=== PATIENT | male | born 2000 | race Caucasian/White ===

== ENCOUNTER 2023-09-16 21:44 | Emergency (ER) | payer BC, SELFPAY ==
[2023-09-16 21:48] VITALS: BP 117/78; PULSE 77; RESP 18; TEMP 36.6; O2SAT 100; BMI 26.6
--- NOTE | 2023-09-16 22:00 | XR_ITS ---
The [address] [address] Patient Name: ARISTIDES ZHENG MRN: [id number] date: 2000 Sex: M Assigned Patient Location: ER Current Patient Location: ER Accession/Order Number: [id number] Exam Date: 09/16/2023 22:12 Report Date: 09/16/2023 22:33 At the request of: MICAH BENJAMIN Procedure: XR ankle LT min 3V EXAM: XR foot LT min 3V, XR ankle LT min 3V HISTORY: The patient is a 23-year-old male, basketball injury COMPARISON: None. FINDINGS: The left foot is radiographically negative with no evidence of fracture, dislocation, cortical discontinuities, or other osseous or articular abnormalities. No acute or ununited fractures are seen within or around the ankle joint. The ankle mortise is intact and uniform. The syndesmosis is maintained. No soft tissue swelling is seen. XR/XR ankle LT min 3V IMPRESSION: Radiographically negative left foot and left ankle. Electronically authenticated by: MAGGY SHAY Date: 09/16/2023 22:33
--- NOTE | 2023-09-16 22:00 | XR_ITS ---
The [address] [address] Patient Name: ARISTIDES ZHENG MRN: [id number] date: 2000 Sex: M Assigned Patient Location: ER Current Patient Location: ER Accession/Order Number: [id number] Exam Date: 09/16/2023 22:12 Report Date: 09/16/2023 22:33 At the request of: MICAH BENJAMIN Procedure: XR foot LT min 3V EXAM: XR foot LT min 3V, XR ankle LT min 3V HISTORY: The patient is a 23-year-old male, basketball injury COMPARISON: None. FINDINGS: The left foot is radiographically negative with no evidence of fracture, dislocation, cortical discontinuities, or other osseous or articular abnormalities. No acute or ununited fractures are seen within or around the ankle joint. The ankle mortise is intact and uniform. The syndesmosis is maintained. No soft tissue swelling is seen. XR/XR foot LT min 3V IMPRESSION: Radiographically negative left foot and left ankle. Electronically authenticated by: MAGGY SHAY Date: 09/16/2023 22:33
--- NOTE | 2023-09-16 22:49 | ED.LOWEXI1 ---
HPI - Extremity Injury (Lower) General Chief Complaint: Extremity Injury, Lower Stated Complaint: lower extremity pain Time Seen by Provider: 09/16/23 21:53 Source: patient Mode of arrival: walk-in Limitations: no limitations History of Present Illness HPI Narrative: The patient was playing basketball at a local rec center when he landed awkwardly onto the left lower extremity, twisting the left ankle and developing pain in the left foot medially and left ankle medially and laterally. He says that the area is now bruised and swollen. He believes injury occurred around 5 PM tonight and he took some ibuprofen a couple of hours later. He did not fall to the ground. No head injury or neck injury. No headache or neck pain. No back pain. No other extremity injuries. Related Data Home Medications Medication Instructions Recorded Confirmed No Known Home Medications 09/16/23 09/16/23 Allergies Allergy/AdvReac Type Severity Reaction Status Date / Time No Known Drug Allergies Allergy Verified 09/16/23 21:48 PFSH PFSH Social History Smoking status: Current every day smoker Exam Narrative Exam Narrative: Nurses note and vital signs reviewed and patient is not hypoxic. Afebrile General: The patient appears well and in no apparent distress. Patient is resting comfortably on cart. GCS = 15. Skin: Warm, dry, no pallor noted. Cardiovascular: Normal peripheral perfusion Respiratory: Patient is in no distress, no accessory muscle use Musculoskeletal: Tenderness with swelling noted to the lateral aspect of the left ankle. He has some tenderness along the left fifth metatarsal as well. He is also tender on the medial aspect of the left ankle but there is no associated swelling. I do not appreciate any ecchymosis. He has normal range of motion of the toes of the left foot as well as at the left ankle. No proximal fibular or tibial tenderness. no additional sign of long bone fracture, no tenderness, no swelling. 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 Psychiatric: Cooperative Constitutional Vital Signs, click to edit/add: Last Vital Signs Temp 97.9 F 09/16/23 21:48 Pulse 77 09/16/23 21:48 Resp 18 09/16/23 21:48 BP 117/78 09/16/23 21:48 Pulse Ox 100 09/16/23 21:48 O2 Del Method Room Air 09/16/23 21:48 Course Vital Signs Vital signs: Vital Signs Temperature 97.9 F 09/16/23 21:48 Pulse Rate 77 09/16/23 21:48 Respiratory Rate 18 09/16/23 21:48 Blood Pressure 117/78 09/16/23 21:48 Pulse Oximetry 100 09/16/23 21:48 Oxygen Delivery Method Room Air 09/16/23 21:48 Temperature 97.9 F 09/16/23 21:48 Pulse Rate 77 09/16/23 21:48 Respiratory Rate 18 09/16/23 21:48 Blood Pressure 117/78 09/16/23 21:48 Pulse Oximetry 100 09/16/23 21:48 Oxygen Delivery Method Room Air 09/16/23 21:48 MDM - Extremity Injury (Lower) MDM Narrative Medical decision making narrative: The patient took ibuprofen a couple of hours prior to arrival. No fractures identified on x-rays of the left foot and ankle, per radiologist. An Phillip wrap was applied to the patient's left ankle by the emergency department nurse and an Aircast was applied as well. Patient was neurovascularly intact distally afterward. He was discharged home with information on foot and ankle sprain, recommendation to elevate the extremity, apply ice, wear compressive bandage and take [id number] Tylenol Motrin as needed for pain. Imaging Data xr foot & xr ankle: Attestation: I have reviewed the pertinent imaging results. Radiologist's impression: ITS Impressions Ankle X-Ray 09/16/23 22:00 IMPRESSION: Radiographically negative left foot and left ankle. Electronically authenticated by: MAGGY SHAY Date: 09/16/2023 22:33 Foot X-Ray 09/16/23 22:00 IMPRESSION: Radiographically negative left foot and left ankle. Electronically authenticated by: MAGGY SHAY Date: 09/16/2023 22:33 Discharge Plan Discharge Chief Complaint: Extremity Injury, Lower Clinical Impression: Ankle sprain and strain, Foot sprain Patient Disposition: Home, Self-Care Time of Disposition Decision: 22:50 Prescriptions / Home Meds: No Action No Known Home Medications Instructions: Ankle Sprain (ED), Foot Sprain (ED) Stand Alone Forms: Portal Instructions Referrals: Yesenia Soria NP [Primary Care Provider] - 1 week
== END 2023-09-16 23:15 | disposition home or self-care (01) ==
PROVIDERS: Emergency Provider Emergency Medicine; PCP Nurse Practitioner
DX: S93.402A Sprain of unspecified ligament of left ankle, initial encounter (principal); S96.912A Strain of unspecified muscle and tendon at ankle and foot level, left foot, initial encounter; S93.602A Unspecified sprain of left foot, initial encounter; X50.1XXA Overexertion from prolonged static or awkward postures, initial encounter; Y93.67 Activity, basketball; F17.210 Nicotine dependence, cigarettes, uncomplicated
CPT/HCPCS: 73610; 73630; 99283

== ENCOUNTER 2023-09-17 05:54 | Emergency (ER) | payer BC, SELFPAY ==
[2023-09-17 05:55] VITALS: BP 124/89; PULSE 69; RESP 13; TEMP 36.6; O2SAT 100; BMI 26.6
--- NOTE | 2023-09-17 05:56 | ECG_ITS ---
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
[2023-09-17 05:57] VITALS: PULSE 65; RESP 33
[2023-09-17 06:00] VITALS: PULSE 80; RESP 19
[2023-09-17 06:01] VITALS: BP 123/82; PULSE 58; RESP 17; O2SAT 100
[2023-09-17 06:02] VITALS: PULSE 64
[2023-09-17] MEDS: 0.9 % SODIUM CHLORIDE 1,000 ML 999 ML IV (06:03)
--- OUTSIDE RECORDS SUMMARY | 2023-09-17 06:03 | XMS_ITS | CCD ---
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 Track Name Role Phone Unavailable Primary Care Provider Greg LUX, DR JP Ohara Attending Unavailsherley JHAVERI, MIKE GUERRERO Primary Care Unavailable JOSE J, DR JP Ohara Admitting Unavailsherley LUX, DR JP Ohara Consulting Unavailabl e AICHHOLZ, MIKE GUERRERO Admitting Unavailable MIKE JHAVERIA Primary Care Unavailable EMILIO, MIKE GUERRERO Consulting Unavailable MIKE JHAVERI Attending Unavailable Wally ROACH Attending Unavailable Medications Completed/Discontinued Medications Medication Drug Class(es) Dates Sig (Normalized) Sig (Original) acetaminophen 325 mg / HYDROcodone bitartrate 5 mg oral tablet (2 sources) Opioid Agonist Start: 01-16-2021 End: 01-16-2021 HYDROcodone-acetam inophen (NORCO) 5-325 MG per tablet 2 tablet Start: 01-16-2021 End: 01-19-2021 take 1-2 tablets by mouth every eight hours as needed for pain HYDROcodone-acetaminophen (NORCO) 5-325 MG per tablet Indications: Pilonidal cyst Take 1-2 tablets by mouth every 8 hours as needed for Pain for up to 3 days. 9 tablet 0 01/16/2021 01/19/2021 Active Problems Active Problems Problem Classification Problem Date Documented Da te Episodic/Chronic Abdominal pain (4 sources) Upper abdominal pain, unspecified; Translations: [UPPER ABDOMINAL PAIN, UNSPECIFIED] Onset: 04-04-2022 Episodic Skin and subcutaneous tissue infections (1 source) Pilonidal cyst; Translations: [Pilonidal cyst without abscess] Episodic Unclassified (3 sources) CONTACT W/AND (SUSP) EXPOS COVID-19; Translations: [CONTACT W/AND (SUSP) EXPOS COVID-19] Onset: 08-09-2021 Past or Other Problems Problem Classification Problem Date Documented Da te Episodic/Chronic Unclassified (1 source) CONTACT W/AND (SUSP) EXPOS COVID-19; Translations: [CONTACT W/AND (SUSP) EXPOS COVID-19] Onset: 08-02-2021 Results Test Name Value Interpretation Reference Range Facil ity Registrationon 01-10-2023 Registration [id number] 9#1.00CD:127 Normal [facility] Consenton 01-09-2023 Consent [id number] 5#[id number]:127 Normal [facility] OCC BLD IMMUNO SCREENon OCCULT BLOOD Positive Abnormal NEGATIVE [facility] Comment on above: Performed By: #### O BSCRN #### [facility] [address] [place] [address] Dr. Praveen Horvath CBC AUTO DIFFon 04-04-2022 BASO # 0.0 103/ul Normal 0.0-0.1 [facility] Comment on above: Performed By: #### C BC #### [facility] [address] [place] [address] Dr. Praveen Horvath Basophils/100 WBC (Bld) 0.4 % Normal 0.2-2.0 [facility] Comment on above: Performed By: #### C BC #### [facility] [address] [place] [address] Dr. Praveen Horvath EO # 0.2 103/ul Normal 0.0-0.7 [facility] Comment on above: Performed By: #### C BC #### [facility] [address] [place] [address] Dr. Praveen Horvath Eosinophils/100 WBC (Bld) 2.7 % Normal 0.9-7.0 [facility] Comment on above: Performed By: #### C BC #### [facility] [address] [place] [address] Dr. Praveen Horvath Erythrocyte distribution width (RBC) [Ratio] 12.4 % Normal 11.0-15.0 [facility] Comment on above: Performed By: #### C BC #### [facility] [address] [place] [address] Dr. Praveen Horvath Hematocrit (Bld) [Volume fraction] 39.3 % Critically low 42.0-54.0 [facility] Comment on above: Performed By: #### C BC #### [facility] [address] [place] [address] Dr. Praveen Horvath Hemoglobin (Bld) [Mass/Vol] 13.2 g/dL Critically low 14.0-18.0 [facility] Comment on above: Performed By: #### C BC #### [facility] [address] [place] [address] Dr. Praveen Horvath IG # 0.01 10e3/ul Normal 0.00-0.03 [facility] Comment on above: Performed By: #### C BC #### [facility] [address] [place] [address] Dr. Praveen Horvath IG % 0.1 % Normal 0.0-0.5 [facility] Comment on above: Performed By: #### C BC #### [facility] [address] [place] [address] Dr. Praveen Horvath LYMPH # 2.3 103/ul Normal 1.2-3.8 [facility] Comment on above: Performed By: #### C BC #### [facility] [address] [place] [address] Dr. Praveen Horvath Lymphocytes/100 WBC (Bld) 32.9 % Normal 20.5-60.0 [facility] Comment on above: Performed By: #### C BC #### [facility] [address] [place] [address] Dr. Praveen Horvath MANUAL DIFF REQ NO Normal [facility] Comment on above: Performed By: #### C BC #### [facility] [address] [place] [address] Dr. Praveen Horvath MCH (RBC) [Entitic mass] 30.6 pg Normal 25.9-34.0 [facility] Comment on above: Performed By: #### C BC #### [facility] [address] [address] [address] Praveen Horvath MCHC (RBC) [Mass/Vol] 33.6 g/dL Normal 29.9-35.2 [facility] Comment on above: Performed By: #### C BC #### [facility] [address] [address] [address] Praveen Horvath MCV (RBC) [Entitic vol] 91.2 fL Normal 80.0-94.0 [facility] Comment on above: Performed By: #### C BC #### [facility] [address] [place] [address] Dr. Praveen Horvath MONO # 0.5 103/ul Normal 0.3-0.8 [facility] Comment on above: Performed By: #### C BC #### [facility] [address] [place] [address] Dr. Praveen Horvath Monocytes/100 WBC (Bld) 7.4 % Normal 1.7-12.0 [facility] Comment on above: Performed By: #### C BC #### [facility] [address] [place] [address] Dr. Praveen Horvath NEUT # 3.9 103/ul Normal 1.4-6.5 [facility] Comment on above: Performed By: #### C BC #### [facility] [address] [place] [address] Dr. Praveen Horvath Neutrophils/100 WBC (Bld) 56.5 % Normal 43.0-75.0 [facility] Comment on above: Performed By: #### C BC #### [facility] [address] [place] [address] Dr. Praveen Horvath Platelet mean volume (Bld) [Entitic vol] 9.3 fL Critically low 9.5-13.5 [facility] Comment on above: Performed By: #### C BC #### [facility] [address] [place] [address] Dr. Praveen Horvath PLT 175 103/ul Normal 150-450 [facility] Comment on above: Performed By: #### C BC #### [facility] [address] [place] [address] Dr. Praveen Horvath RBC 4.31 106/ul Critically low 4.70-6.10 [facility] Comment on above: Performed By: #### C BC #### [facility] [address] [place] [address] Dr. Praveen Horvath WBC 6.9 103/ul Normal 4.0-11.0 [facility] Comment on above: Performed By: #### C BC #### [facility] [address] [place] [address] Dr. Praveen Horvath LIPASEon 04-04-2022 Lipase [Catalytic activity/Vol] 131.0 U/L Normal 73.0-393.0 [facility] Comment on above: Performed By: #### L IPA, CMP #### [facility] [address] [place] [address] Dr. Praveen Horvath PROF 14(COMP METB)on 022 Albumin [Mass/Vol] 4.2 g/dL Normal 3.4-5.0 [facility] Comment on above: Performed By: #### L IPA, CMP #### [facility] [address] [place] [address] Dr. Praveen Horvath Albumin/Globulin [Mass ratio] 2.0 {ratio} Normal [facility] Comment on above: Performed By: #### L IPA, CMP #### [facility] [address] [place] [address] Dr. Praveen Horvath ALP [Catalytic activity/Vol] 68 U/L Normal 46-116 [facility] Comment on above: Performed By: #### L IPA, CMP #### [facility] [address] [place] [address] Dr. Praveen Horvath ALT [Catalytic activity/Vol] 29 U/L Normal 16-63 [facility] Comment on above: Performed By: #### L IPA, CMP #### [facility] [address] [place] [address] Dr. Praveen Horvath Anion gap [Moles/Vol] 8.4 mmol/L Normal [facility] Comment on above: Performed By: #### L IPA, CMP #### [facility] [address] [address] [address] Praveen Horvath AST [Catalytic activity/Vol] 14 U/L Critically low 15-37 [facility] Comment on above: Performed By: #### L IPA, CMP #### [facility] [address] [address] [address] Praveen Horvath Bilirubin [Mass/Vol] 0.3 mg/dL Normal 0.2-1.0 [facility] Comment on above: Performed By: #### L IPA, CMP #### [facility] [address] [address] [address] Praveen Horvath Calcium [Mass/Vol] 8.7 mg/dL Normal 8.5-10.1 [facility] Comment on above: Performed By: #### L IPA, CMP #### [facility] [address] [address] [address] Praveen Horvath Chloride [Moles/Vol] 105 mmol/L Normal 98-107 [facility] Comment on above: Performed By: #### L IPA, CMP #### [facility] [address] [address] [address] Praveen Horvath CO2 [Moles/Vol] 27.3 mmol/L Normal 21.0-32.0 [facility] Comment on above: Performed By: #### L IPA, CMP #### [facility] [address] [address] [address] Praveen Horvath Creatinine [Mass/Vol] 0.86 mg/dL Normal 0.70-1.30 [facility] Comment on above: Performed By: #### L IPA, CMP #### [facility] [address] [address] [address] Praveen Horvath EGFR-AF PORTUGUESE >60 Normal >=60 [facility] Comment on above: Performed By: #### L IPA, CMP #### [facility] [address] [address] [address] Praveen Horvath EGFR-NON AF [place]UESE >60 Normal >=60 [facility] Comment on above: Performed By: #### L IPA, CMP #### [facility] [address] [address] [address] Praveen Horvath Globulin (S) [Mass/Vol] 2.1 g/dL Normal [facility] Comment on above: Performed By: #### L IPA, CMP #### [facility] [address] [address] [address] Praveen Horvath Glucose [Mass/Vol] 88 mg/dL Normal 74-106 [facility] Comment on above: Performed By: #### L IPA, CMP #### [facility] [address] [address] [address] Praveen Horvath Potassium [Moles/Vol] 3.7 mmol/L Normal 3.5-5.1 [facility] Comment on above: Performed By: #### L IPA, CMP #### [facility] [address] [place] [address] Dr. Praveen Horvath Protein [Mass/Vol] 6.3 g/dL Critically low 6.4-8.2 [facility] Comment on above: Performed By: #### L IPA, CMP #### [facility] [address] [place] [address] Dr. Praveen Horvath Sodium [Moles/Vol] 137 mmol/L Normal 136-145 [facility] Comment on above: Performed By: #### L IPA, CMP #### [facility] [address] [place] [address] Dr. Praveen Horvath Urea nitrogen [Mass/Vol] 15.0 mg/dL Normal 7.0-18.0 [facility] Comment on above: Performed By: #### L IPA, CMP #### [facility] [address] [place] [address] Dr. Praveen Horvath Urea nitrogen/Creatinine [Mass ratio] 17.4 mg/mg Normal [facility] Comment on above: Performed By: #### L IPA, CMP #### [facility] [address] [place] [address] Dr. Praveen Horvath Cov[facility]-19 [facility]on SARS-CoV-2 (COVID-19) RNA LO+probe Ql (Unsp spec) Not detected Normal NOT DETECTED [facility] Comment on above: Result Comment: This test is not yet approved or cleared by the [place] FDA. When there are no FDA-approved or cleared tests available, and other criteria are met, FDA can make tests available under an emergency access mechanism called an Emergency Use Authorization (EUA). The EUA for this test is supported by the [employer] Aligner of Health and Human Service's (HHS's) declaration that circumstances exist to justify the emergency use of in vitro diagnostics for the detection and/or diagnosis of the virus that causes COVID-19. This EUA will remain in effect (meaning this test can be used) for the duration of the COVID-19 declaration justifying emergency of IVDs, unless it is terminated or revoked by FDA (after which the test may no longer be used). When diagnostic testing is negative, the possibility of a false negative should be considered in the context of a patient's recent exposures and the presence of clinical signs and symptoms consistent with SARS-CoV-2. Performed By: #### [facility] #### [facility] [address] [place] [address] Dr. Praveen Horvath Incision/DrainageOrdered By: Jaswinder Mckenzie on 01-16-2021 Jaswinder Mckenzie DO 01/16/2021 10:19 PM Incision/Drainage Date/Time: 01/16/2021 10:13 PM Performed by: Jaswinder Mckenzie DO Authorized by: Jaswinder Mckenzie DO Consent: Consent obtained: Verbal Consent given by: Patient Risks discussed: Bleeding, damage to other organs, infection, incomplete drainage and pain Alternatives discussed: Referral, observation, alternative treatment, delayed treatment and no treatment Reading protocol: Procedure explained and questions answered to patient or proxy's satisfaction: yes Relevant documents present and verified: yes Test results available and properly labeled: yes Imaging studies available: yes Required blood products, implants, devices, and special equipment available: yes Site/side marked: yes Immediately prior to procedure a time out was called: yes Patient identity confirmed: Verbally with patient Location: Type: Cyst Size: 1.5 cm Location: pilonidal cyst. Pre-procedure details: Skin preparation: Betadine Anesthesia (see MAR for exact dosages): Anesthesia method: Local infiltration Local anesthetic: Bupivacaine 0.5% w/o epi Procedure type: Complexity: Simple Procedure details: Needle aspiration: no Incision types: Elliptical Scalpel blade: 10 Wound management: Probed and deloculated, irrigated with saline and extensive cleaning Drainage: Purulent Drainage amount: Moderate Wound treatment: Wound left open Packing materials: None Post-procedure details: Patient tolerance of procedure: Tolerated well, no immediate complications [employer] Phone: [employer] Phone: Vital Signs Date Time Vital Sign Value Performing Clinician Faci lity 01-16-2021 21:42-0400 Body height 175.3 cm Jaswinder Kauli Phone: [employer] Phone: 01-16-2021 21:42-0400 Body mass index (BMI) [Ratio] 35.44 kg/m2 Jaswinder [employer] Work Phone: [employer] Phone: 01-16-2021 21:42-0400 Body temperature 98.01 [degF] Jaswinderkrys Mckenzie [employer] Work Phone: [employer] Phone: 01-16-2021 21:42-0400 Body weight 108.86 kg Jaswinder Mckenzie [employer] Work Phone: [employer] Phone: 01-16-2021 21:42-0400 Diastolic blood pressure 79 mm[Hg] Jaswinder Mckenzie [employer] Work Phone: [employer] Phone: 01-16-2021 21:42-0400 Heart rate 91 /min Jaswinder [employer] Work Phone: [employer] Phone: 01-16-2021 21:42-0400 Respiratory rate 16 /min Jaswinderkrys Mckenzie [employer] Work Phone: [employer] Phone: 01-16-2021 21:42-0400 SaO2% (BldA) [Mass fraction] 98 % Jaswinder Mckenzie [employer] Phone: [employer] Phone: 01-16-2021 21:42-0400 Systolic blood pressure 125 mm[Hg] Jaswinder Mckenzie DO [employer] Phone: [employer] Phone: Encounters Encounter Date Encounter Type Care Provider Facility Start: 01-09-2023 End: 01-10-2023 ambulatory Wally ROACH Facility:[facility] Start: 04-04-2022 End: 04-04-[address] JP LUX Facility:[facility] Start: 08-02-2021 End: 08-02-2021 ambulatory MIKE JHAVERI Facility:[facility] Start: 01-16-2021 End: 01-16-2021 Emergency department patient visit Jaswinder Mckenzie [employer] Phone: [facility] Comment on above: Pilonidal cyst (Prim nerissa Dx) Procedures Date Procedure Procedure Detail Performing Clinician Start: 01-16-2021 INCISION AND DRAINAGE P joseck Dimas Mckenzie [employer] Phone: Plan of Treatment Date Care Activity Detail Author Start: 03-28-2021 Influenza vaccination Flu vacc ine (Season Ended) [employer] Phone: Start: 2011 COVID-19 Vaccine (1) COVID-19 Vaccin e (1) [employer] Phone: Payers Date Payer Category Payer Unknown [id number] 1999 Unknown [id number] 1960 Self-pay 1960 Self-pay [id number] Social History Date Type Detail Facility Start: 01-16-2021 [facility] Phone: History of tobacco use Cigarette Smoker [employer] Start: 01-16-2021 Tobacco use and exposure Never used [facility] [employer] [facility] Start: 1999 Sex Assigned At Not on file [facility] [employer] Phone: Exposure to SARS-CoV -2 (event) Not sure [facility] [employer] [facility] Evaluation note Note Date & Type Note Facility Evaluation note Diagnosis Pilonidal cyst- Primary Pilonidal cyst without mention of abscess documented in this encounter [employer] Phone: Hospital Discharge instructions Attachments Note Date & Type Note Facility Hospital Discharge instructions The following attachments cannot be sent through Care Everywhere.Pilonidal Cyst Excision: Pre-op (Hungarian)Pilonidal Disease: General Info (Hungarian)documented in this encounter [employer] Phone: Summary Purpose Family History No Family History Records FoundNo Family History Records Found Advance Directives No Advanced Directives Records FoundNo Advanced Directives Records Found Additional Source Comments Reason for Visit (unrecogniz ed section and content) Reason Comments Cyst lower mid back is a cyst Ordered Prescriptions (unrec ognized section and content) Prescription Sig Dispensed Refills Start Date End Da te HYDROcodone-acetaminophen (NORCO) 5-325 MG per tabletIndications:Pilonid al cyst Take 1-2 tablets by mouth every 8 hours as needed for Pain for up to 3 days. 9 tablet 0 01/16/2021 01/19/2021 Scheduled Active and Recently Administ ered Medications (unrecognized section and content) Medication Order 01/14/2021 01/15/2021 01/16/2021 HYDROcodone-acetaminophen (NORCO) 5-325 MG per tablet 2 tablet (COMPLETED) 2 tablet, Oral, ONCE, On Fri01/16/21 at 2200, For 1 dose, Maximum dose of acetaminophen is 4000 mg from all sources in 24 hours. 2225 (Given - Provid er: Myrna Randle RN) (unrecognized sect ion and content) No Status Records FoundNo Status Records Found INFORMATION SOURCE (unrecogn ized section and content) DATE CREATED AUTHOR 04/05/2022 [facility] DATE CREATED AUTHOR 'S ORGANIZ ATION 01/10/2023 [facility] FOR RECORDS PERTAINING TO PATIENTS WHO ARE OR HAVE BEEN ENROLLED IN A CHEMICAL DEPENDENCY/SUBSTANCEABUSE PROGRAM, SOME INFORMATION MAY BE OMITTED. This clinical summary was aggregated from multiple sources. Caution should be exercised in using it in the provision of clinical care. This summary normalizes information from multiple sources, and as a consequence, information in this document may materially change the coding, format and clinical context of patient data. In addition, data may be omitted in some cases. CLINICAL DECISIONS SHOULD BE BASED ON THE PRIMARY CLINICAL RECORDS. [facility]. provides no warranty or guarantee of the accuracy or completeness of information in this document.
--- NOTE | 2023-09-17 06:04 | ED.DIZZY1 ---
HPI - Dizziness General Chief Complaint: Dizziness Stated Complaint: dizzy Time Seen by Provider: 09/17/23 05:55 Source: patient Mode of arrival: ambulance History of Present Illness HPI Narrative: Patient was driving to work when he felt dizzy. He felt as if he might pass out. He pulled over into a gas station and called 911. EMS arrived and brought him to our emergency department for evaluation. EMS reported normal vital signs on their evaluation. On arrival, the patient states that he is already starting to feel better. I saw this patient earlier after he had injured his left foot and ankle while playing basketball. XRays were negative and he had an jt wrap and ankle stirrup splint applied to the left LE He did not fall to the ground or injure any other extremities other than the left foot and ankle. He did not hit his head or lose consciousness. He did not injure the chest, neck or back.\ He denied any fever, vomiting or diarrhea. I did not give him any pain medicine in the emergency department he was evaluated for his foot and ankle sprain. That said he was instructed to take [id number] medications such as Tylenol Motrin. Related Data Home Medications Medication Instructions Recorded Confirmed No Known Home Medications 09/16/23 09/16/23 Allergies Allergy/AdvReac Type Severity Reaction Status Date / Time No Known Drug Allergies Allergy Verified 09/16/23 21:48 [facility] Social History Smoking status: Current every day smoker Exam Narrative Exam Narrative: Nurses notes and vital signs reviewed and patient is not hypoxic. afebrile General: Well-appearing and in no apparent distress. Skin: Warm, dry, no pallor noted. Head: Normocephalic, atraumatic. Neck: Supple, non-tender. Eye: Pupils are equal, round and EOMI. No scleral icterus. Cardiovascular: Regular Rate and Rhythm without murmur, gallop or rub. Respiratory: No accessory muscle use or respiratory distress. Lungs are clear to auscultation, no wheezing, rales or rhonchi Musculoskeletal: normal ROM, no calf or popliteal tenderness, no lower extremity edema/swelling Neurological: A&O x4. No cranial nerve dysfunction observed. No truncal ataxia. Moves all extremities. Sensation intact. Psychiatric: Cooperative and interactive. Normal mood and affect. Constitutional Vital Signs, click to edit/add: Last Vital Signs Temp 97.8 F 09/17/23 05:55 Pulse 58 L 09/17/23 06:01 Resp 17 09/17/23 06:01 BP 123/82 09/17/23 06:01 Pulse Ox 100 09/17/23 06:01 O2 Del Method Room Air 09/17/23 05:55 Course Vital Signs Vital signs: Vital Signs Temperature 97.8 F 09/17/23 05:55 Pulse Rate 69 09/17/23 05:55 Respiratory Rate 13 09/17/23 05:55 Blood Pressure 124/89 09/17/23 05:55 Pulse Oximetry 100 09/17/23 05:55 Oxygen Delivery Method Room Air 09/17/23 05:55 Temperature 97.8 F 09/17/23 05:55 Pulse Rate 58 L 09/17/23 06:01 Respiratory Rate 17 09/17/23 06:01 Blood Pressure 123/82 09/17/23 06:01 Pulse Oximetry 100 09/17/23 06:01 Oxygen Delivery Method Room Air 09/17/23 05:55 MDM - Dizziness MDM Narrative Medical decision making narrative: Patient was placed on environmental monitoring specialist and EKG obtained. Blood drawn and sent for evaluation. He was given a L of NS IVF, IV Toradol and oral tylenol for left foot and ankle pain. Unremarkable labs. Patient given reassurance and discharged home. Lab Data Attestation: I reviewed the patient's lab results. Labs: Lab Results 09/17/23 Range/Units 06:06 WBC 10.2 (4.0-11.0) 10^3/uL RBC 4.51 L (4.70-6.10) 10^6/uL Hgb 13.7 L (14.0-18.0) g/dL Hct 41.8 L (42.0-54.0) % MCV 92.7 (80.0-94.0) fL MCH 30.4 (25.9-34.0) pg MCHC 32.8 (29.9-35.2) g/dL RDW 12.4 (11.0-15.0) % Plt Count 164 (150-450) 10^3/uL MPV 9.4 L (9.5-13.5) fL Neut % (Auto) 75.7 H (43.0-75.0) % Lymph % (Auto) 15.1 L (20.5-60.0) % [place] % (Auto) 7.6 (1.7-12.0) % Eos % (Auto) 1.0 (0.9-7.0) % Baso % (Auto) 0.4 (0.2-2.0) % Neut # (Auto) 7.7 H (1.4-6.5) 10^3/uL Lymph # (Auto) 1.5 (1.2-3.8) 10^3/uL [place] # (Auto) 0.8 (0.3-0.8) 10^3/uL Eos # (Auto) 0.1 (0.0-0.7) 10^3/uL Baso # (Auto) 0.0 (0.0-0.1) 10^3/uL Abs Immat Gran (auto) 0.02 (0.00-0.03) 10^3/uL Imm/Tot Granulo (auto) 0.2 (0.0-0.5) % Sodium 143 (136-145) mmol/L Potassium 3.7 (3.5-5.1) mmol/L Chloride 107 (98-107) mmol/L Carbon Dioxide 28.3 (21.0-32.0) mmol/L Anion Gap 11.4 BUN 10.0 (7.0-18.0) mg/dL Creatinine 0.83 (0.70-1.30) mg/dL Est GFR ( Amer) >60 (>=60) Est GFR (Non-Af Amer) >60 (>=60) BUN/Creatinine Ratio 12.0 Glucose 119 H (74-106) mg/dL Calcium 8.8 (8.5-10.1) mg/dL ECG Data Attestation: I personally reviewed and interpreted this ECG as follows: Interpretation: EKG interpretation: Emergency Department physician interpretation. Normal sinus rhythm at 56bpm. Normal axis, normal intervals and nonspecific T wave changes. No ST segment elevation or depression. Discharge Plan Discharge Chief Complaint: Dizziness Clinical Impression: Dizziness Patient Disposition: Home, Self-Care Time of Disposition Decision: 06:47 Prescriptions / Home Meds: No Action No Known Home Medications Instructions: Dizziness (ED) Stand Alone Forms: Portal Instructions Referrals: Yesenia Soria NP [Primary Care Provider] - 1 week
[2023-09-17 06:18] LABS: Basophils Percent Auto 0.4 % (0.2-2.0); Eosinophils Absolute Auto 0.1 10^3/uL (0.0-0.7); Hematocrit 41.8 % (42.0-54.0); Hemoglobin 13.7 g/dL (14.0-18.0); Immature Granulocytes Abs Auto 0.02 10^3/uL (0.00-0.03); Immature Granulocytes Pct Auto 0.2 % (0.0-0.5); Lymphocytes Absolute Auto 1.5 10^3/uL (1.2-3.8); Lymphocytes Percent Auto 15.1 % (20.5-60.0); Mean Corpuscular HGB Conc 32.8 g/dL (29.9-35.2); Mean Corpuscular Hemoglobin 30.4 pg (25.9-34.0); Mean Corpuscular Volume 92.7 fL (80.0-94.0); Mean Platelet Volume 9.4 fL (9.5-13.5); Monocytes Absolute Auto 0.8 10^3/uL (0.3-0.8); Monocytes Percent Auto 7.6 % (1.7-12.0); Neutrophils Absolute Auto 7.7 10^3/uL (1.4-6.5); Neutrophils Percent Auto 75.7 % (43.0-75.0); Platelet Count 164 10^3/uL (150-450); Red Blood Count 4.51 10^6/uL (4.70-6.10); Red Cell Distribution Width 12.4 % (11.0-15.0); White Blood Count 10.2 10^3/uL (4.0-11.0)
[2023-09-17 06:24] LABS: Anion Gap 11.4; Calcium 8.8 mg/dL (8.5-10.1); Carbon Dioxide 28.3 mmol/L (21.0-32.0); Chloride 107 mmol/L (98-107); Estimated GFR (African America >60 (>=60); Estimated GFR (Non-African Ame >60 (>=60); Glucose 119 mg/dL (74-106); Potassium 3.7 mmol/L (3.5-5.1); Sodium 143 mmol/L (136-145)
[2023-09-17] MEDS: KETOROLAC TROMETHAMINE 30 MG/ML VIAL IVP (06:29)
[2023-09-17] MEDS: ACETAMINOPHEN 500 MG TABLET 1000 MG PO (06:29)
[2023-09-17] MEDS: ONDANSETRON PF 4 MG/2 ML VIAL IV (06:29)
[2023-09-17 07:52] LABS: Cannabinoid Screen Urine NEGATIVE (NEGATIVE); Phencyclidine Screen Urine NEGATIVE (NEGATIVE)
[2023-09-17 07:53] LABS: Amphetamine Screen Urine NEGATIVE (NEGATIVE); Barbiturates Screen Urine NEGATIVE (NEGATIVE); Benzodiazepines Screen Urine NEGATIVE (NEGATIVE); Buprenorphine Screen Urine NEGATIVE (NEGATIVE); Cocaine Screen Urine NEGATIVE (NEGATIVE); Methadone Screen Urine NEGATIVE (NEGATIVE); Methamphetamines Screen Urine NEGATIVE (NEGATIVE); Opiate Screen Urine NEGATIVE (NEGATIVE); Oxycodone Screen Urine NEGATIVE (NEGATIVE); Tricyclic Antidepressant Urine NEGATIVE (NEGATIVE)
== END 2023-09-17 07:27 | disposition home or self-care (01) ==
PROVIDERS: Emergency Provider Emergency Medicine; PCP Nurse Practitioner
DX: R42 Dizziness and giddiness (principal); F17.200 Nicotine dependence, unspecified, uncomplicated
CPT/HCPCS: 36415; 80048; 80307; 85025; 93005; 96361; 96374; 96375; 99284; J1885; J2405